=== PATIENT | male | born 1995 | race Caucasian/White ===

== ENCOUNTER 2018-05-05 09:44 | Emergency (ER) | payer OTHER ==
[2018-05-05] MEDS ORDERED: Ibuprofen 800 MG TAB ONE (10:17)
[2018-05-05] MEDS ORDERED: Acetaminophen 500 MG TAB ONE (10:17)
--- NOTE | 2018-05-05 11:32 | RAD ---
RIGHT ANKLE 3 VIEWS: Date: 05/05/18 HISTORY: Injury. Right ankle pain. FINDINGS/IMPRESSION: No acute fracture or dislocation is identified. The ankle mortise is maintained. POS: OFF
== END 2018-05-05 11:00 | disposition home or self-care (01) ==
LOC: MADERS 09:44
DX: S93.401A Sprain of unspecified ligament of right ankle, initial encounter (principal); I10 Essential (primary) hypertension; Z79.899 Other long term (current) drug therapy; X50.1XXA Overexertion from prolonged static or awkward postures, initial encounter

== ENCOUNTER 2018-07-23 08:50 | Outpatient (CLI) | payer OTHER ==
[2018-07-23 09:24] LABS: #Basophils 0.1 thou/uL (0.0-0.2); #Eosinphils 0.3 thou/uL (0.0-0.7); #Lymphocytes 1.7 thou/uL (1.20-3.40); #Monocytes 0.5 thou/uL (0.11-0.59); #Neutrophils 3.1 thou/uL (1.40-6.50); %Basophils 1.7 % (0.0-1.0); %Lymphocytes 29.9 % (21.0-51.0); %Monocytes 9.5 % (0.0-10.0); %Neutrophils 53.9 % (42.0-75.0); Hemoglobin 16.2 g/dL (14.0-18.0); Mean Corpuscular Volume 81.7 fL (78.0-98.0); Mean Platelet Volume 7.9 fL (7.4-10.4); Platelet Count 292 thou/uL (130-400); RBC Distribution Width 11.5 % (11.5-14.5); Red Blood Cell (RBC) Count 6.02 mill/uL (4.70-6.10); White Blood Cell (WBC) Count 5.7 thou/uL (4.8-10.8)
[2018-07-23 09:39] LABS: ALT (SGPT) 62 U/L (8-55); AST (SGOT) 34 U/L (5-34); Albumin 4.7 g/dL (3.5-5.0); Alkaline Phosphatase 111 U/L (40-150); Anion Gap 11 mmol/L (10-20); BUN (Urea Nitrogen) 14 mg/dL (8.9-20.6); Bilirubin, Total 0.7 mg/dL (0.2-1.2); Calc. Creatinine Clearance 0 mL/min (70-130); Calcium 9.6 mg/dL (7.8-10.44); Carbon Dioxide 25 mmol/L (22-29); Cardiac Risk 6.6 (Less than 4.5); Chloride 105 mmol/L (98-107); Cholesterol 210 mg/dl (< 200 Desired); Estimated GFR-MDRD Greater than 90; Globulin 2.7 g/dL (2.4-3.5); Glucose 76 mg/dL (70-105); HDL Cholesterol 32 mg/dL (>60 Neg Risk); LDL Cholesterol, Calculated 149 mg/dL; Protein, Total 7.4 g/dL (6.0-8.3); Sodium 137 mmol/L (136-145); Triglycerides 147 mg/dL (Less than 150)
[2018-07-23 10:00] LABS: Thyroid Stimulating Hormone 1.1894 uIU/mL (0.35-4.94)
[2018-07-23 17:29] LABS: Free T4 (Free Thyroxine) 1.02 ng/dL (0.70-1.48)
== END 2018-07-23 08:51 | disposition home or self-care (01) ==
LOC: MADLABBHPM 08:50
PROVIDERS: ATTEND Family Medicine
DX: I10 Essential (primary) hypertension (principal); R07.9 Chest pain, unspecified
CPT/HCPCS: 36415; 80053; 80061; 84439; 84443; 85025; 93005; 93010

== ENCOUNTER 2019-01-15 11:24 | Outpatient (CLI) | payer OTHER | END 2019-01-15 11:25 | disposition home or self-care (01) | LOC: MADEKG 11:24 | PROVIDERS: ATTEND Family Medicine | DX: I10 Essential (primary) hypertension (principal) | CPT/HCPCS: 93005; 93010 ==

== ENCOUNTER 2020-01-01 21:21 | Emergency (ER) | payer OTHER ==
[2020-01-01] MEDS ORDERED: Lidocaine Viscous Sol 2% 15 ml UD Cup ONE (21:49)
[2020-01-01] MEDS ORDERED: Mag-Al Plus 1200 MG/1200 MG/120 MG/30 ML UDCUP ONE (21:49)
[2020-01-01] MEDS ORDERED: Aspirin 325 MG TAB ONE (21:49)
--- NOTE | 2020-01-01 22:01 | RAD ---
Chest one view HISTORY: Chest pain. FINDINGS: Cardiac silhouette and pulmonary vasculature are unremarkable. Mediastinum is midline. No c onfluent airspace consolidation or evidence of pneumothorax. IMPRESSION: Normal exam.
[2020-01-01 22:06] LABS: #Basophils 0.1 thou/uL (0.0-0.2); #Eosinphils 0.4 thou/uL (0.0-0.7); #Lymphocytes 2.5 thou/uL (1.20-3.40); #Monocytes 0.6 thou/uL (0.11-0.59); #Neutrophils 4.3 thou/uL (1.40-6.50); %Basophils 1.2 % (0.0-1.0); %Eosinophils 4.5 % (0.0-10.0); %Lymphocytes 32.2 % (21.0-51.0); %Monocytes 7.4 % (0.0-10.0); %Neutrophils 54.7 % (42.0-75.0); Hemoglobin 15.6 g/dL (14.0-18.0); Mean Corpuscular HGB CONC 31.9 g/dL (32.0-36.0); Mean Corpuscular Hemoglobin 26.4 pg (27.0-31.0); Mean Corpuscular Volume 82.6 fL (78.0-98.0); Mean Platelet Volume 8.6 fL (7.4-10.4); Platelet Count 298 thou/uL (130-400); RBC Distribution Width 11.7 % (11.5-14.5); Red Blood Cell (RBC) Count 5.91 mill/uL (4.70-6.10); White Blood Cell (WBC) Count 7.9 thou/uL (4.8-10.8)
[2020-01-01 22:18] LABS: Anion Gap 14 mmol/L (10-20); BUN (Urea Nitrogen) 11 mg/dL (8.9-20.6); Calc. Creatinine Clearance 0 mL/min (70-130); Calcium 9.3 mg/dL (7.8-10.44); Carbon Dioxide 24 mmol/L (22-29); Chloride 109 mmol/L (98-107); Estimated GFR-MDRD Greater than 90; Glucose 121 mg/dL (70-105); Potassium 3.9 mmol/L (3.5-5.1); Sodium 143 mmol/L (136-145)
== END 2020-01-01 22:48 | disposition home or self-care (01) ==
LOC: MADERS 21:21
DX: R07.9 Chest pain, unspecified (principal); I10 Essential (primary) hypertension; F17.290 Nicotine dependence, other tobacco product, uncomplicated; Z79.899 Other long term (current) drug therapy
CPT/HCPCS: 71045; 80048; 84443; 84484; 85025; 93005